=== PATIENT | female | born 1985 | race Caucasian/White ===

== ENCOUNTER 2018-09-19 10:33 | Emergency (ER) | payer OTHER ==
[2018-09-19] MEDS ORDERED: CITA-157 PO (10:46)
[2018-09-19] MEDS ORDERED: MORPHINE 10 MG/ML SYR IVP ONE (10:50)
--- NOTE | 2018-09-19 11:00 | ER Report ---
History and Physical Time Seen By MD: 10:59 Hx. of Stated Complaint: Pt c/o sudden onset R knee pain after twisting motion in car, bruising noted, no obvious deformity. Prior dislocation of same as teenager. HPI/ROS CHIEF COMPLAINT: Right knee pain HISTORY OF PRESENT ILLNESS: 32-year-old female patient presents to emergency room with complaint of right knee pain. Patient states that she was turning around to grab something out of the backseat of the car all she is in the past received. Patient states she felt a pop in the right knee was unable to straigh ten her knee. Patient states she does have significant amounts of pain. She denies any numbness or tingling to her toes. She states this happened once when she was 13 years old, who to the emergency room and had her patella reduced. She states that it felt very similar to this. She states that she has not had any other injuries to her knee since that time. Patient states she is not taking any medication. States this occurred just prior to arrival in the emergency room. REVIEW OF SYSTEMS: Respiratory: No cough, no dyspnea. Cardiovascular: No chest pain, no palpitations. Gastrointestinal: No vomiting, no abdominal pain. Musculoskeletal: As noted above Allergies: Coded Allergies: No Known Drug Allergies (Unverified , 09/19/18) Home Meds Reported Medications Citalopram Hydrobromide (CELEXA) 40 Mg Tablet, 40 MG PO QDAY, #5 TAB 09/19/18 Past Medical/Surgical History Patient has a past medical history of factor V Leiden, depression. Patient denies any surgical history. Reviewed Nurses Notes: Yes Constitutional Vital Sign - Last 24 Hours 09/19/18 09/19/18 10:42 12:33 Temp 98.1 Pulse 68 68 Resp 16 14 B/P (MAP) 114/49 115/78 (90) Pulse Ox 97 97 O2 Delivery Room Air Room Air Physical Exam General Appearance: The patient is alert, has no immediate need for airway protection and no current signs of toxicity. Respiratory: Chest is non tender, lungs are clear to auscultation. Cardiac: regular rate and rhythm Gastrointestinal: Abdomen is soft and non tender, no masses, bowel sounds normal. Musculoskeletal: Neck: Neck is supple and non tender. Extremities have full range of motion and are non tender. Patient is unable to straighten her right knee. On exam the biceps femoralis tendon is tight, she is tender along the fibula as well as the distal femur. Skin: No rashes or lesions. DIFFERENTIAL DIAGNOSIS: After history and physical exam differential diagnosis was considered for dislocation, strain, fracture Medical Decision Making EKG/Imaging Imaging EXAMINATION: Right knee radiographs 3 views HISTORY: Knee injury. COMPARISON: None. FINDINGS: AP, lateral and oblique views of the right knee are obtained. Bones: Negative. Joint spaces: Negative. Hardware: None. Alignment: Normal. Soft tissues: Negative. Effusion: None. IMPRESSION: No acute right knee fracture. Report Dictated By: Elijah Balderas MD at 09/19/2018 12:04 PM Report E-Signed By: Elijah Balderas MD at 09/19/2018 12:06 PM ED Course/Re-evaluation ED Course History of physical were obtained. Differential diagnoses were considered. On examination lungs are clear, heart is regular, abdomen soft nontender. Patient does have pain around the right knee, the biceps femoralis tendon is tight and tender to palpation. An IV was started and patient did receive 6 mg of morphine. X-ray was done of the right knee. During the time that she was getting x-rayed she felt a pop in her right knee. At that time she is able to straighten her leg and felt significantly improved. She rates her pain a zero out of 10. She has some tenderness to palpation to the lateral aspect of the right knee. Patient was placed in a knee immobilizer. She was able to get up and walk around without any difficulties. We'll go ahead and discharge her home at this time. She is return to emergency room if condition worsens. I would like her to follow-up from [facility], for further evaluation. I believe that they may need to do some physical therapy strengthen muscles around that so that tendon won't be so lax. I discussed this with the patient who verbalized understanding and agreement with plan. Decision to Disposition Date: Sep 19, 2018 Decision to Disposition Time: 12:31 Depart Departure Latest Vital Signs Vital Signs Date Time Temp Pulse Resp B/P (MAP) Pulse Ox O2 Delivery O2 Flow Rate FiO2 09/19/18 12:33 68 14 115/78 (90) 97 Room Air 09/19/18 10:42 98.1 Impression: Primary Impression: Biceps femoris tendon strain at knee Condition: Improved Disposition: HOME OR SELF-CARE Referrals: MIRANDA SANCHEZ MD Patient Instructions: Knee Sprain (ED) Additional Instructions: Limit activity by pain. Get plenty of rest. Take Ibuprofen as needed for pain. Return to the ER if condition worsens. Follow up with [facility] in the next week, call this afternoon to make an appointment. DAMI COLE Sep 19, 2018 11:00
[2018-09-19] MEDS ORDERED: KETAMINE HCL 500 MG/5 ML VIAL IVP ONE (11:20)
[2018-09-19] MEDS ORDERED: LORazepam 2 MG/ML VIAL IVP ONE (11:20)
--- NOTE | 2018-09-19 12:10 | RADIOLOGY IMAGING REPORT ---
FACILITY: [facility] - [place] PATIENT NAME: Belem Nye : 1985 MR: [id number] V: [id number] EXAM DATE: ORDERING PHYSICIAN: CLYDE MALDONADO TECHNOLOGIST: Location: [facility] [place] Patient: Belem Nye : 1985 Visit/Account:[id number] Date of Sevice: 09/19/2018 EXAMINATION: Right knee radiographs 3 views HISTORY: Knee injury. COMPARISON: None. FINDINGS: AP, lateral and oblique views of the right knee are obtained. Bones: Negative. Joint spaces: Negative. Hardware: None. Alignment: Normal. Soft tissues: Negative. Effusion: None. IMPRESSION: No acute right knee fracture. Report Dictated By: Elijah Balderas MD at 09/19/2018 12:04 PM Report E-Signed By: Elijah Balderas MD at 09/19/2018 12:06 PM WSN:[id number]
[2018-09-19 12:33] VITALS: BP 115/78
== END 2018-09-19 12:34 | disposition home or self-care (01) ==
LOC: ER 11:01
DX: S86.811A Strain of other muscle(s) and tendon(s) at lower leg level, right leg, initial encounter (principal)
CPT/HCPCS: 73562; 96374; 99283; J2270; L1830